=== PATIENT | male | born 1940 | race Hispanic/Latino ===

== ENCOUNTER 2018-01-22 10:04 | Outpatient (CLI) | payer MEDICARE ==
--- NOTE | 2018-01-28 16:12 | Vascular Lab Report ---
CAROTID DUPLEX STUDY: RIGHT PSVEDV CCA PROX:[id number] CCA DIST:8110 ICA PROX:7613 ICA MID:7013 ICA DIST:7116 ECA: 147 VERT: 48 9 LEFT PSVEDV CCA PROX:6112 CCA DIST:7112 ICA PROX:[id number] ICA MID:[id number] ICA DIST:8417 ECA: 240 VERT: 39 9 REASON FOR EXAM: Left carotid bruit. COMMENTS ON THE RIGHT: Doppler frequency analysis is consistent with 16 to 49 percent diameter reduction of the internal carotid artery. A small amount of plaque is seen. The common carotid artery is patent. The external carotid artery is patent. The vertebral artery has antegrade flow. COMMENTS ON THE LEFT: Doppler frequency analysis is consistent with 50 to 79 percent diameter reduction of the internal carotid artery. Eccentric plaque is seen at the origin of the internal carotid artery. The common carotid artery is patent. The external carotid artery is patent. The vertebral artery has antegrade flow. IMPRESSION: 50-79% diameter reduction in the left internal carotid artery. Eccentric plaque is seen. These findings could be responsible for carotid bruit. Less than 50% diameter reduction in the right internal carotid artery. Small amount of plaque seen. Recommend repeat carotid duplex in 12 months.
== END 2018-01-22 10:05 | disposition home or self-care (01) ==
LOC: VAS 10:04
PROVIDERS: ATTEND Internal Medicine
DX: I65.23 Occlusion and stenosis of bilateral carotid arteries (principal)
CPT/HCPCS: 93880

== ENCOUNTER 2018-01-30 11:28 | Day surgery (SDC) | payer MEDICARE ==
[2018-01-30] MEDS ORDERED: MYDRIACYL ONE (12:11)
[2018-01-30 12:21] VITALS: BP 139/52
[2018-01-30] MEDS ORDERED: MYDRIACYL OD ONE (12:22)
[2018-01-30] MEDS ORDERED: IOPIDINE OD ONE (13:00)
[2018-01-30] MEDS ORDERED: AK-Dilate OD ONE (13:00)
[2018-01-30] MEDS ORDERED: IOPIDINE ONE (13:03)
[2018-01-30] MEDS ORDERED: AK-Dilate ONE (13:03)
== END 2018-01-30 13:35 | disposition home or self-care (01) ==
LOC: OR 11:28
PROVIDERS: ATTEND Ophthalmology
DX: E11.36 Type 2 diabetes mellitus with diabetic cataract (principal); H26.491 Other secondary cataract, right eye; I10 Essential (primary) hypertension; E78.00 Pure hypercholesterolemia, unspecified; I25.10 Atherosclerotic heart disease of native coronary artery without angina pectoris; M19.90 Unspecified osteoarthritis, unspecified site; Z95.5 Presence of coronary angioplasty implant and graft; Z87.891 Personal history of nicotine dependence; I25.2 Old myocardial infarction; Z98.890 Other specified postprocedural states
CPT/HCPCS: 82962

== ENCOUNTER 2018-04-03 09:09 | Outpatient (CLI) | payer MEDICARE ==
[2018-04-03 10:06] LABS: Blood Urea Nitrogen 23 mg/dL (9-20)
--- NOTE | 2018-04-03 12:02 | Cat Scan Report ---
CTA NECK INDICATION: Occlusion and stenosis of left carotid artery. COMPARISON: 01/22/2018 carotid duplex. FINDINGS: CTA neck performed utilizing IV contrast. Axial, sagittal, coronal and MIP reconstructions obtained. Patent aortic arch and major arising branch vessels, including bilateral carotids and codominant vertebral arteries. Few atherosclerotic calcifications. Patent common carotid arteries. Mild bilateral carotid bulb atherosclerotic calcifications, left slightly more than right. However, additional noncalcified thrombus results in approximately 70-80% left carotid bulb/proximal ICA stenosis. Mild, less than 50% right carotid bulb stenosis suspected. Medial deviation of the right ICA noted on axial image 87, series 2, extending toward the skull base. Normal imaged intracranial appearance. Bilateral cataract surgery. Mild left maxillary sinus mucosal thickening or retention cyst inferiorly. Clear remainder imaged paranasal sinuses and mastoid air cells. Normal thyroid. Clear visualized upper lungs. Multilevel cervical spine degenerative spurring and facet arthropathy. Moderate C5-C6 and C6-C7 disc narrowing. CONCLUSION: Approximately 70-80% left carotid bulb/proximal ICA stenosis noted without significant right ICA stenosis, similar to prior ultrasound findings, as described. Few other incidental findings also seen, as above. Please correlate. Thank you for the opportunity to participate in this patient's care.
== END 2018-04-03 09:10 | disposition home or self-care (01) ==
LOC: CT 09:09
PROVIDERS: ATTEND Surgery Vascular Surgery
DX: I65.22 Occlusion and stenosis of left carotid artery (principal); I10 Essential (primary) hypertension; E78.00 Pure hypercholesterolemia, unspecified; Z87.891 Personal history of nicotine dependence
CPT/HCPCS: 36415; 70498; 82565; 84520; Q9967